=== PATIENT | female | born 1985 | race Caucasian/White ===

== ENCOUNTER → 2016-06-16 | Outpatient (CLI) | payer OTHER ==
--- NOTE | 2016-06-16 11:59 | KCIC ---
Bilateral diagnostic digital mammograms with CAD: HISTORY Bilateral breast discharge for 6 months and bilateral breast pain. Family history of breast and ovarian cancer. COMPARISON Baseline exam. FINDINGS Breast density category D. The skin and nipples show no abnormalities. No abnormal lymph nodes are seen in the axilla. The breast parenchyma is extremely dense. There is some nodular asymmetry suggested posterior laterally on the exaggerated CC view of the right breast. There are no other dominant masses, suspicious calcifications or architectural distortions. IMPRESSION Extremely dense breast tissue. Nodular asymmetry posterior laterally in the right breast on exaggerated CC view. No abnormalities in the left breast. This study was interpreted with the benefit of Computerized Aided Detection (CAD). Mammography is not 100% sensitive in detecting breast cancer. Therefore, a self breast exam and a clinical breast exam are very important. A negative mammogram does not negate a clinically suspicious finding and should not result in a delay in biopsying a clinically suspicious abnormality. BI-RADS category 0: Incomplete. Ultrasound to follow. Bilateral breast ultrasound: Bilateral breast ultrasound was performed of all 4 quadrants including the retroareolar and axillary regions. The right breast shows no discrete cystic or solid nodules or architectural distortions. No abnormal lymph nodes are seen in the right axilla. The left breast shows 2 small hypoechoic lesions in the 3 o'clock position 2 centimeters from the nipple and in the 4 o'clock position 1 centimeter from nipple. These likely represent complicated cyst or small fibrocystic lesions but could represent small fibroadenoma. Recommend 6 month sonographic followup. Impression: No focal abnormalities evident in the right breast. There is dense fibroglandular tissue. Small hypoechoic lesions in the left breast at the 3 o'clock and 4 o'clock positions which have benign appearance. Recommend 6 month followup ultrasound. BI-RADS category 3: Probably benign. This patient's information has been entered into a reminder system for the patient to be notified with the results of this examination and a target date for her next mammograms. Electronically signed by: Galina Poon MD (Jun 16, 2016 11:58:34)
== END | disposition home or self-care (01) ==
LOC: KCIC MAMMO 08:35
PROVIDERS: ATTEND Specialist
DX: N60.11 Diffuse cystic mastopathy of right breast (principal); N60.12 Diffuse cystic mastopathy of left breast; Z80.3 Family history of malignant neoplasm of breast; N64.4 Mastodynia; N64.52 Nipple discharge
CPT/HCPCS: 76641; G0204; 77066

== ENCOUNTER → 2017-01-05 | Outpatient (CLI) | payer OTHER ==
--- NOTE | 2017-01-05 15:51 | KCIC ---
Bilateral breast ultrasound: Reason for examination: Follow-up for fibrocystic changes. Comparison is made to previous study dated 06/16/2016. Bilateral whole breast ultrasound including evaluation of all 4 quadrants and the retroareolar and axillary regions of both breasts was performed. The right breast shows no discrete cystic or solid nodules or architectural distortion. No abnormal lymph nodes are seen in the right axilla. The left breast continues to show small hypoechoic lesions consistent with cysts in the 3:00 position 2 cm from the nipple and in the 4:00 position 1 cm from the nipple which have shown no significant changes. No abnormal appearing lymph nodes are seen in the axilla. IMPRESSION: No change in the small fibrocystic lesions at the 3:00 and 4:00 positions. Recommend routine mammographic follow-up. BI-RADS Category 2: Benign. "Our facility is accredited by the [employer] Mammography Program." This patient's information has been entered into a reminder system for the patient to be notified with the results of her examination and a target date for the next mammogram. Electronically signed by: Katty Poon MD (01/05/2017 3:48 PM) [facility]
== END | disposition home or self-care (01) ==
LOC: KCIC US 13:47
PROVIDERS: ATTEND Specialist
DX: N60.02 Solitary cyst of left breast (principal); N60.01 Solitary cyst of right breast
CPT/HCPCS: 76641